=== PATIENT | male | born 1985 | race African-American/Black ===

== ENCOUNTER 2023-03-14 20:35 | Outpatient (CLI) | payer OTHER | END 2023-03-14 20:36 | disposition home or self-care (01) | LOC: SC 20:35 | PROVIDERS: ATTEND Internal Medicine Pulmonary Disease | DX: G47.61 Periodic limb movement disorder (principal) | CPT/HCPCS: 95810 ==

== ENCOUNTER 2023-03-24 15:40 | Outpatient (CLI) | payer OTHER ==
--- NOTE | 2023-03-24 12:51 | SLEEP CARE CONSULTATION ---
Information from patient questionnaire entered by Omar Lane. I have reviewed and concur with the information entered by Omar Lane. This document represents the service I personally performed and the decisions made by me, Trent Torrez MD, [facility]. History of Present Illness Service Date and Time: 03/24/2023 1140 Initial [place] Sleepiness Scale score: 16 (02/01/23) Current [place] Sleepiness Scale score: 14 (03/24/23) Additional HPI information: Mr. Rodney returned for follow up of the sleep study he had on 03/14/23. The polysomnography showed that the patient had slightly reduced sleep efficiency due to frequent awakenings in the first half of the night. The sleep architecture was abnormal for sleep fragmentation and reduced amount of time spent in REM sleep. Respiratory monitoring showed no significant sleep disorde red breathing (AHI = 3.2) or hypoxia (momo oxygen saturation of 87% and only < 1% to the total sleep time was spent with oxygen saturation below 90%). The few respiratory events occurred mainly during supine REM sleep (supine AHI = 3.8; non-supine = 0.00). Snore was moderate to loud in intensity. There was mild periodic leg movement of sleep contributing to the sleep fragmentation. Cardiac rhythm was normal sinus rhythm without significant arrhythmia. No abnormal behavior (parasomnia) observed during the night. The patient was informed of these findings. I explained to him that the sleep study showed mild periodic leg movement of sleep. He reports having restless leg discomfort in the evening when sitting still. His legs also bother him in the middle of the night. Sleep Study - Results Type of Sleep Study: Polysomnography (COMPLETED 03/14/2023) Prior sleep studies: No Allergies and Home Medications Drug allergies reviewed: Yes Home medication list reviewed: Yes Review of Systems Review of systems same as previous: Yes (NO CHANGE) Physical Exam Vital signs obtained and entered by: OMAR Rashid MA Height: 5 ft 6 in (PER PT) Weight: 160 lb (PER PT) Body Mass Index: 25.8 BMI Classification: Overweight Impression and Plan IMPRESSION: 1. Periodic leg movement of sleep, mild, with restless leg syndrome. The cause of periodic leg movement of sleep is typically unknown. Few known causes are iron deficiency, renal failure, and selective serotonin reuptake inhibitors. Iron and ferritin levels are recommended in addition to the routine blood work. If needed, a dopamine agonist or gabapentin can be used in the evening to relieve the discomfort. PLAN: 1. [place]. Return to the sleep clinic on as needed basis. Follow up with Sleep Care in: as needed Follow up with: PCP Visit Type: Telehealth Video Video Type: Doximity Patient agrees and consents to this telehealth visit type: Yes Patient agrees to have their insurance billed: Yes Time Spent with Patient (minutes): 15 Provider Statement: I spent 100% of the Telehealth Video Call with the patient with greater than 50% spent counseling the patient and coordination of care.
== END 2023-03-24 15:41 | disposition home or self-care (01) ==
LOC: SC 15:40
PROVIDERS: ATTEND Internal Medicine Pulmonary Disease
DX: G47.61 Periodic limb movement disorder (principal); G25.81 Restless legs syndrome

== ENCOUNTER 2023-07-27 05:43 | Emergency (ER) | payer OTHER ==
[2023-07-27] MEDS ORDERED: ONDANSETRON 4 MG/2 ML VIAL IVP STA (05:58)
[2023-07-27] MEDS: SODIUM CHLORIDE 0.9% 1,000 ML IV STA (06:25)
[2023-07-27 06:27] LABS: BASOPHILS # (AUTO) 0.1 10^3/uL (0.0-0.1); BASOPHILS % (AUTO) 0.6 %; EOSINOPHILS # (AUTO) 0.4 10^3/uL (0.0-0.7); EOSINOPHILS % (AUTO) 3.2 %; HCT - HEMATOCRIT 45.1 % (42.0-52.0); HGB - HEMOGLOBIN 14.7 g/dL (14.0-18.0); LYMPHOCYTES # (AUTO) 3.4 10^3/uL (1.5-3.5); LYMPHOCYTES % (AUTO) 28.5 %; MEAN CORPUSCULAR HEMOGLOBIN 26.8 pg (27.0-31.0); MEAN CORPUSCULAR HGB CONC 32.6 g/dL (32.0-36.0); MEAN CORPUSCULAR VOLUME 82.1 fL (80.0-94.0); MEAN PLATELET VOLUME 9.3 fL (7.4-11.4); MONOCYTES # (AUTO) 0.8 10^3/uL (0.0-1.0); MONOCYTES % (AUTO) 6.4 %; NEUTROPHILS # (AUTO) 7.2 10^3/uL (1.5-6.6); PLT - PLATELET COUNT 309 10^3/uL (130-450); RED BLOOD COUNT 5.49 10^6/uL (4.70-6.10); RED CELL DISTRIBUTION WIDTH 12.7 % (12.0-15.0); WHITE BLOOD COUNT 11.8 x10^3/uL (4.8-10.8)
--- NOTE | 2023-07-27 06:28 | ED Physician Documentation ---
PD HPI CHEST PAIN - Stated complaint Stated Complaint: RT SD PX - Chief complaint Chief Complaint: Abd Pain - History obtained from History obtained from: Patient - Additional information Additional information: The patient comes to the emergency department chief complaint of right-sided chest pain for the past few days. He states he has been nauseated and vomiting and has also had a headache. He keeps getting the pain sort of around his xiphoid area that just reaches underneath his ribs and goes all the way to his right most side. He states he has gotten it occasionally before the past few da ys and sometimes it is associated with eating. He does also state that if he pushes on his xiphoid he can recreate some of the pain. He states he just feels full when he takes a deep breath of the right side. No fevers or chills. No cough. No diarrhea. The pain comes and goes but when it comes, he states he feels like it is just a tight band under his right lower ribs anterolaterally. PD PAST MEDICAL HISTORY - Past Medical History Past Medical History: No - Past Surgical History Past Surgical History: No - Present Medications Home Medications: Ambulatory Orders Medication Instructions Recorded Confirmed No Known Home Medications 03/24/23 07/27/23 - Allergies Allergies/Adverse Reactions: Allergies Allergy/AdvReac Type Severity Reaction Status Date / Time No Known Drug Allergies Allergy Verified 07/27/23 05:56 - Social History Does the pt smoke?: Yes Smoking Status: Current every day smoker Does the pt drink ETOH?: Yes PD ED PE NORMAL - Vitals Vital signs reviewed: Yes - General General: Alert and oriented X 3, No acute distress, Well developed/nourished - HEENT HEENT: Atraumatic, PERRL, EOMI, Moist mucous membranes - Neck Neck: Supple, no meningeal sign - Cardiac Cardiac: RRR, No murmur - Respiratory Respiratory: No respiratory distress, Clear bilaterally - Abdomen Abdomen: Soft, Non tender, Non distended - Derm Derm: Normal color, Warm and dry, No rash - Extremities Extremities: No deformity, No edema, No calf tenderness / cord - Neuro Neuro: Other (Alert, grossly oriented.) - Psych Psych: Normal mood, Normal affect Results - Vitals Vitals: Vital Signs - 24 hr 07/27/23 05:50 Temperature 36.8 C Heart Rate 69 Respiratory 18 Rate Blood Pressure 108/68 O2 Saturation 98 Oxygen O2 Source Room air PD Medical Decision Making - ED course Complexity details: reviewed results, re-evaluated patient, considered differential, d/w patient ED course: The patient was worked up with laboratory studies and given IV fluid and Zofran in the emergency department. Labs are unremarkable. He is pending ultrasound at this time and is signed out to Dr. Cowan, pending this and final disposition. Departure - Departure
[2023-07-27 06:36] LABS: ALBUMIN 4.7 g/dL (3.2-5.5); ALBUMIN/GLOBULIN RATIO 1.9 (1.0-2.2); BILIRUBIN,TOTAL 0.3 mg/dL (0.2-1.0); CALCIUM 9.8 mg/dL (8.5-10.3); CREATININE 0.8 mg/dL (0.6-1.3); POTASSIUM 3.8 mmol/L (3.5-4.5); TOTAL PROTEIN 7.2 g/dL (6.4-8.9)
--- NOTE | 2023-07-27 07:53 | XRAY Report ---
PROCEDURE: Chest 1V INDICATIONS: chest pain TECHNIQUE: One view of the chest was acquired. COMPARISON: None. FINDINGS: Surgical changes and devices: None. Lungs and pleura: Low lung volumes. No dense consolidation or pleural effusion. Mediastinum: Normal heart size Bones and chest wall: No suspicious bony lesions. Overlying soft tissues appear unremarkable. IMPRESSION: No acute radiographic abnormality on this single view study. Reviewed by: Que Dennis MD on 07/27/2023 7:52 AM PDT Approved by: Que Dennis MD on 07/27/2023 7:52 AM PDT Station ID: [id number]
--- NOTE | 2023-07-27 07:55 | Ultrasound Report ---
PROCEDURE: Abdomen Limited INDICATIONS: RUQ pain TECHNIQUE: Real-time focused scanning was performed of the abdomen, with image documentation. COMPARISONS: None. FINDINGS: Liver: Liver measures 17 cm. Overall echotexture is increased. Gallbladder: Cholelithiasis. No focal tenderness. No pathologic wall thickening. Biliary ducts: Intrahepatic bile ducts are non-dilated. Extrahepatic bile duct caliber measures 4 m m. Normal is 6-7 mm or less in diameter, or 10 mm or less post-cholecystectomy. Pancreas: Visualized portions of the pancreas are sonographically normal. Right kidney: Right kidney measures 11 cm. No hydronephrosis. IMPRESSION: Cholelithiasis without focal tenderness to suggest cholecystitis. Echogenic liver is nonspecific, most commonly due to steatosis. Reviewed by: Que Dennis MD on 07/27/2023 7:54 AM PDT Approved by: Que Dennis MD on 07/27/2023 7:54 AM PDT Station ID: [id number]
--- NOTE | 2023-07-27 08:12 | ED Physician Documentation ---
ED Addendum - Addendum Addendum: 07/27/23 08:09 Ultrasound shows gallstones, largest 2.2 cm. no signs cholecystitis. Has elevated WBC but no other lab abnl. Re-exam @ 0800- benign abdomen, no tenderness. he is hungry and would like to go home We discussed biliary colic, biliary diet, and referral to surgery. Discussed return and followup instructions. Impressions: Cholelithiasis Plan: [place] diet, Vicodin, zofran, refer to Dr. Rosa for Gen surg eval Discharge Plan Disposition: 01 Home, Self Care Condition: Good Instruction Topics: Gallstones, Gallstones Dc No Smoking: If you smoke, Please STOP! Call for help. Follow-up with: Naresh Rosa MD [Provider Admit Priv/Credential] - Impression - Impression Assessment/Impression: This is Day of Life #[] for this baby [] born via at [today/yesterday] and transitioning [].
--- NOTE | 2023-07-27 08:19 | ED Physician Documentation ---
ED Addendum - Addendum Addendum: Patient endorsed to me at change of shift at 07 100 this morning with right upper quadrant ultrasound pending. Preliminary report shows that he does have gallstones without any secondary signs of cholecystitis. His large gallstone is 2.2 cm his CBD is fine he has fatty liver but otherwise no wall thickening pericholecystic fluid or sonographic [place] sign. I evaluated the patient independently at 08 100 and found to have a completely benign abdomen he is resting comfortably pain-free and in fact is hungry would like to go home. We discussed care of gallstones including biliary diet instructions and need for follow-up with general surgery. Will refer to Dr. Rosa, Rx Vicodin and Zofran. Return to ER if worse. Impression: Biliary Colic Plan: bland , lowfat diet, vicodin/zofran, refer to gen surgery 07/27/23 08:22
[2023-07-27 08:37] VITALS: BP 112/74; O2SAT 100
== END 2023-07-27 08:31 | disposition home or self-care (01) ==
LOC: ED 05:43
DX: K80.50 Calculus of bile duct without cholangitis or cholecystitis without obstruction (principal)
CPT/HCPCS: 36415; 80053; 83690; 85025; 99284